=== PATIENT | female | born 1960 | race American Indian/Alaskan Native ===

== ENCOUNTER 2017-04-16 13:01 | Emergency (ER) | payer MEDICAID ==
--- NOTE | 2017-04-16 13:08 | EDM.PDOC ---
ED HPI GENERAL MEDICAL PROBLEM - General Chief Complaint: Neuro Symptoms/Deficits Stated Complaint: LEFT SIDE FACIAL DROOPING Time Seen by Provider: 04/16/17 13:01 Source of Information: Reports: Patient, RN Notes Reviewed History Limitations: Reports: No Limitations - History of Present Illness INITIAL COMMENTS - FREE TEXT/NARRATIVE: The patient states that she went to bed around 22:30 last night, and had no neurologic deficits. She states that when she woke this morning around 05:30, she saw in the mirror that she had a left facial droop, and reports having some tingling to the left side of her face and pain behind her left ear. She denies injury to the left side of her face. She reports recent allergy-like symptoms, including some sinus congestion. No prior similar symptoms. The patient's PCP is at [facility]. Posterior Neck Pain Score (Numeric/FACES): 10 - Related Data Allergies Allergy/AdvReac Type Severity Reaction Status Date / Time No Known Allergies Allergy Verified 04/16/17 13:07 Home Meds: Home Meds Hydrochlorothiazide 25 mg PO DAILY 04/16/17 [History] Prednisone [IJD: predniSONE] 60 mg PO WITHBREAKFAST #18 tab 04/16/17 [Rx] valACYclovir [Valtrex] 1,000 mg PO Q8H #18 tablet 04/16/17 [Rx] Past Medical History Cardiovascular History: Reports: CAD, High Cholesterol, Hypertension, [place] Gastrointestinal History: Reports: GERD Musculoskeletal History: Reports: Arthritis - Past Surgical History HEENT Surgical History: Reports: Other (See Below) (Left tympanic membrane graft ) Cardiovascular Surgical History: Reports: Coronary Artery Stent (x 1) GI Surgical History: Reports: Cholecystectomy Social & Family History - Tobacco Use Smoking Status *Q: Current Every Day Smoker Years of Tobacco use: 32 Packs/Tins Daily: 0.5 - Alcohol Use Alcohol Use History: No - Recreational Drug Use Recreational Drug Use: No - Living Situation & Occupation Living situation: Reports: Single, Alone Occupation: Unemployed ED ROS GENERAL - Review of Systems Review Of Systems: See Below Constitutional: Reports: No Symptoms HEENT: Reports: No Symptoms Respiratory: Reports: No Symptoms Cardiovascular: Reports: No Symptoms Endocrine: Reports: No Symptoms GI/Abdominal: Reports: Diarrhea, Nausea : Reports: No Symptoms Musculoskeletal: Reports: No Symptoms Skin: Reports: No Symptoms Neurological: Reports: No Symptoms Psychiatric: Reports: No Symptoms Hematologic/Lymphatic: Reports: No Symptoms Immunologic: Reports: No Symptoms ED EXAM, NEURO - Physical Exam Exam: See Below Exam Limited By: No Limitations General Appearance: Alert, WD/WN, No Apparent Distress Eye Exam: Left Eye: Other (The patient is able to close her left eye), Bilateral Eye: Normal Inspection Ears: Normal External Exam, Normal Canal, Normal TMs, Other (Decreased hearing left ear) Nose: Normal Inspection, Normal Mucosa, No Blood, Other (Whitish growthnoted on the inferior aspect of the right septum, possibly a polyp, possibly a tumor) Throat/Mouth: Normal Inspection, Normal Lips, Normal Teeth, Normal Gums, Normal Oropharynx, Normal Voice, No Airway Compromise Head Exam: Atraumatic, Normocephalic Neck: Normal Inspection, Supple, Non-Tender, Full Range of Motion. No: Lymphadenopathy (L), Lymphadenopathy (R) Respiratory/Chest: No Respiratory Distress, Lungs Clear, Normal Breath Sounds, No Accessory Muscle Use Cardiovascular: Normal Peripheral Pulses, Regular Rate, Rhythm, No Gallop, No JVD, No Murmur, No Rub GI/Abdominal: Normal Bowel Sounds, Soft, Non-Tender, No Organomegaly, No Distention, No Abnormal Bruit, No Mass (Female) Exam: Deferred Rectal (Female) Exam: Deferred Neurological: Alert, Normal Dorsiflexion, Normal Plantar Flexion, Normal Gait, No Motor/Sensory Deficits, Oriented x 3, Other (Left facial hemiparesis that involves the forehead, consistent with House-Brachmann grade III to IV) Back Exam: Normal Inspection, Full Range of Motion, NT Extremities: Normal Inspection, Normal Range of Motion, No Pedal Edema, Normal Capillary Refill Psychiatric: Normal Affect Skin Exam: Warm, Dry, Intact, Normal Color, No Rash Course - Vital Signs Last Recorded V/S: Last Vital Signs Temp 36.6 C 04/16/17 13:08 Pulse 72 04/16/17 13:08 Resp 18 04/16/17 13:08 BP 174/69 H 04/16/17 13:08 Pulse Ox 99 04/16/17 13:08 - Orders/Labs/Meds Meds: Medications Discontinued Medications Generic Name Dose Route Start Last Admin Trade Name Freq PRN Reason Stop Dose Admin Prednisone 80 mg 04/16/17 13:56 04/16/17 14:33 Prednisone PO 04/16/17 13:57 80 mg ONETIME STA Administration Valacyclovir HCl 1,000 mg 04/16/17 13:57 Valtrex PO 04/16/17 13:58 ONETIME STA Valacyclovir HCl 3,000 mg 04/16/17 14:21 04/16/17 14:33 Valtrex PO 04/16/17 14:22 3,000 mg ONETIME STA Administration - Re-Assessments/Exams Free Text/Narrative Re-Assessment/Exam: 04/16/17 13:58 Clinically, the patient has Sellers palsy, 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 Current guidelines recommend treatment with oral prednisone 60-80 mg daily for 7 days for all patients with Sellers palsy with onset under 3 days. Valtrex is also recommended for patients with House-Brachmann grade IV or above, therefore it is a judgment call if this patient would derive benefit from an antiviral. Since her onset is so early, her symptoms may worsen to a full grade for, therefore I am recommending that she start Valtrex. Treatment would be 1 g TID for 7 days. 04/16/17 14:22 Notified that we carry Valtrex 500 mg tablets. I have ordered 3 g - the patient is to take 1 g now, another gram in 8 hours, and the third gram tomorrow morning. She has been started on prednisone 80 mg here in the ED. Unfortunately , today being , all pharmacies are currently closed. I have e- prescribed 6 days each of prednisone and Valtrex. I am going to refer the patient to Dr. Hawk, ENT, for further evaluation of the growth in her right nostril. Departure - Departure Time of Disposition: 14:25 Disposition: Home, Self-Care 01 Condition: Good Clinical Impression: Left-sided Sellers's palsy - Discharge Information Prescriptions: Prednisone [IJD: predniSONE] 60 mg PO WITHBREAKFAST #18 tab valACYclovir [Valtrex] 1,000 mg PO Q8H #18 tablet Instructions: Sellers Palsy Referrals: PCP,Not In Area [Primary Care Provider] - James Hawk MD [Physician] - Forms: ED Department Discharge Additional Instructions: You were seen in the emergency room for left-sided facial weakness. On evaluation, you have a condition called Sellers palsy. In accordance with guidelines, you have been started on the steroid prednisone and the anti-viral medicine Valtrex. Take 60 mg prednisone with breakfast each morning, starting tomorrow morning, 04/17/2017, as prescribed. Take 1000 mg Valtrex every 8 hours, starting tomorrow, 04/17/2017, as prescribed. Finish both of these medicines unless told otherwise by a doctor. While it appears that you can close your left eye, it is possible that your condition may worsen, and that your left eye does not close when you are sleeping. If that happens, you will need to carefully tape your left eye closed at bedtime. A growth was noticed in your right nostril. This is unrelated to your Sellers palsy. We recommend you follow-up with the ENT Dr. Hawk for further evaluation. If any other problems, please do not hesitate to return to the ER.
[2017-04-16 13:13] VITALS: BP 174/69
[2017-04-16] MEDS ORDERED: predniSONE 20 MG Tab PO STA (13:56)
[2017-04-16] MEDS ORDERED: valACYclovir 1,000 MG Tab PO STA (13:57)
[2017-04-16] MEDS ORDERED: valACYclovir 500 MG Tab PO STA (14:21)
== END 2017-04-16 14:43 | disposition home or self-care (01) ==
LOC: JD.ED 13:01
DX: G51.0 Bell's palsy (principal); I25.10 Atherosclerotic heart disease of native coronary artery without angina pectoris; E78.00 Pure hypercholesterolemia, unspecified; I10 Essential (primary) hypertension; I25.2 Old myocardial infarction; F17.210 Nicotine dependence, cigarettes, uncomplicated; K21.9 Gastro-esophageal reflux disease without esophagitis; Z90.49 Acquired absence of other specified parts of digestive tract; Z79.899 Other long term (current) drug therapy
CPT/HCPCS: 99284; A9270; 99283

== ENCOUNTER 2017-12-17 08:54 | Emergency (ER) | payer MEDICAID ==
[2017-12-17 09:17] VITALS: BP 115/72
--- NOTE | 2017-12-17 09:30 | EDM.PDOC ---
ED HPI GENERAL MEDICAL PROBLEM - General Chief Complaint: General Stated Complaint: COUGH/CONGESTION Time Seen by Provider: 12/17/17 09:20 Source of Information: Reports: Patient History Limitations: Reports: No Limitations - History of Present Illness INITIAL COMMENTS - FREE TEXT/NARRATIVE: 57-year-old female presents to the ED with paroxysmal productive sounding cough for the last 2 weeks. Associated upper respiratory tract symptoms with pain in her maxillary sinuses nasal congestion postnasal drip. Throat is sore as well. Intermittent fever and some chills. Cough is mostly nonproductive but she does have associated wheezing. Of note she smoked a pack of cigarettes a day up until about 2 weeks ago when she decided to quit. Onset: Gradual Onset Date: 12/03/17 (Illness started about 2 weeks ago with cold-like symptoms nose sinuses and then congested cough.) Duration: Week(s):, Getting Worse Location: Reports: Face (Facial pain in the maxillary sinuses), Chest Quality: Reports: Ache, Other Severity: Moderate (Paroxysmal productive sounding cough with a wheeze) Improves with: Reports: None Worsens with: Reports: Other (Cough is worse when she lays down.) Associated Symptoms: Reports: Chest Pain, Cough, cough w sputum (From coughing so much), Diaphoresis ( coughing yellowish sputum without hemoptysis), Fever/ Chills, Loss of Appetite, Malaise, Shortness of Breath. 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 - Related Data Allergies Allergy/AdvReac Type Severity Reaction Status Date / Time No Known Allergies Allergy Verified 12/17/17 09:13 Home Meds: Home Meds Hydrochlorothiazide 25 mg PO DAILY 04/16/17 [History] Prednisone [IJD: predniSONE] 60 mg PO WITHBREAKFAST #18 tab 04/16/17 [Rx] valACYclovir [Valtrex] 1,000 mg PO Q8H #18 tablet 04/16/17 [Rx] Doxycycline [Vibramycin] 100 mg PO BID #24 cap 12/17/17 [Rx] Hydrocodone/Chlorphen P-Stirex [Tussionex Pennkinetic Susp] 5 ml PO Q12H PRN # 60 ml 12/17/17 [Rx] predniSONE [Deltasone] 20 mg PO BID #14 tablet 12/17/17 [Rx] Past Medical History HEENT History: Reports: Impaired Vision Cardiovascular History: Reports: CAD, High Cholesterol, Hypertension, [place] Respiratory History: Reports: COPD ([id number] history quit smoking 2 weeks ago) Gastrointestinal History: Reports: GERD [employer]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: Musculoskeletal History: Reports: Arthritis - Past Surgical History HEENT Surgical History: Reports: None Cardiovascular Surgical History: Reports: Coronary Artery Stent GI Surgical History: Reports: Cholecystectomy Musculoskeletal Surgical History: Reports: None Social & Family History - Family History Family Medical History: Noncontributory - Tobacco Use Smoking Status *Q: Former Smoker Years of Tobacco use: 32 Packs/Tins Daily: 0.5 Used Tobacco, but Quit: Yes Month/Year Tobacco Last Used: 12/2017 - Caffeine Use Caffeine Use: Reports: Coffee - Recreational Drug Use Recreational Drug Use: No - Living Situation & Occupation Living situation: Reports: Single, Alone Occupation: Unemployed ED ROS GENERAL - Review of Systems Review Of Systems: See Below Constitutional: Reports: Fever, Chills, Malaise, Weakness, Fatigue, Decreased Appetite, Weight Loss HEENT: Reports: Sinus Problem (Early having pain in both maxillary sinuses and pain in the ethmoid sphenoid sinus distribution), Other (Nasal congestion.). Denies: Ear Pain Respiratory: Reports: Shortness of Breath, Wheezing, Cough, Sputum. Denies: Hemoptysis (Yellowish in color) Cardiovascular: Reports: Chest Pain, Blood Pressure Problem (On medication for hypertension), Dyspnea on Exertion. Denies: Claudication, Edema, Lightheadedness, Orthopnea, Palpitations Endocrine: Reports: Fatigue GI/Abdominal: Reports: Decreased Appetite : Reports: No Symptoms Musculoskeletal: Reports: No Symptoms Skin: Reports: No Symptoms Neurological: Reports: Headache ED EXAM, GENERAL - Physical Exam Exam: See Below Exam Limited By: No Limitations General Appearance: Alert, WD/WN, Mild Distress, Other (Harsh paroxysmal productive sounding cough.) Eye Exam: Bilateral Eye: Normal Inspection Ears: Normal TMs Nose: Nasal Swelling (She has swelling of both medial and superior turbinates. No nasal polyps noted) Throat/Mouth: Normal Inspection, Normal Lips, Normal Oropharynx, Other Head: Atraumatic, Normocephalic Neck: Normal Inspection, Supple, Non-Tender, Full Range of Motion. No: Lymphadenopathy (L), Lymphadenopathy (R) Respiratory/Chest: No Accessory Muscle Use, Respiratory Distress (Mild tachypnea at rest with O2 sats of 91-94% on room air.), Rhonchi (Rhonchi throughout ), Wheezing (all lung narvaez. intermittent wheezing throughout all lung narvaez. ). No: Lungs Clear, Normal Breath Sounds, Chest Non-Tender Cardiovascular: Normal Peripheral Pulses, Regular Rate, Rhythm, No Edema, No Gallop, No Murmur Peripheral Pulses: 2+: Posterior Tibial (L), Posterior Tibial (R), Dorsalis Pedis (L), Dorsalis Pedis (R) GI/Abdominal: Normal Bowel Sounds, Soft, Non-Tender, No Organomegaly, Other. No : Guarding, Rigid, Rebound, Tender Back Exam: Normal Inspection, Full Range of Motion. No: CVA Tenderness (L), CVA Tenderness (R) Extremities: Normal Inspection, Normal Range of Motion, Non-Tender, No Pedal Edema Neurological: Alert, Oriented, CN II-XII Intact, Normal Cognition Psychiatric: Normal Affect, Normal Mood Skin Exam: Warm, Dry, Intact, Normal Color, No Rash Course - Vital Signs Last Recorded V/S: Last Vital Signs Temp 36.3 C 12/17/17 09:13 Pulse 92 12/17/17 09:13 Resp 20 12/17/17 09:13 BP 115/72 12/17/17 09:13 Pulse Ox 91 L 12/17/17 09:13 - Radiology Interpretation Free Text/Narrative:: 57-year-old female presents to the ED with paroxysmal productive cough for the last 2 weeks. Associated sinus congestion and increasing pain in her maxillary sinuses and sphenoid sinuses behind her eyes. Cough is productive yellow yellowish to greenish tinged phlegm at times without blood. Increased shortness of breath and obvious audible wheezing. Patient states she quit smoking 2 weeks ago. Oxygen. O2 sats are 91-94% on room air and she is not in any distress in this regard. Afebrile at present. However on exam lungs are congested throughout with rhonchi and wheezes. He does have maxillary sinus with postnasal drip. Plan two-view chest x-ray to be done - Re-Assessments/Exams Free Text/Narrative Re-Assessment/Exam: 12/17/17 10:05: Two-view chest x-ray is negative for pneumonia. Stigmatism of COPD is evident. Plan discharged on doxycycline 100 mg twice daily for the next 12 days for both sinus congestion and bronchitis. Prednisone 20 mg a.m. and p.m. for 7 days. Tussionex cough syrup 5 mils primarily at bedtime about an hour before planning to retire for the evening. With personal care physician if not markedly improved in 72 hours time. Departure - Departure Time of Disposition: 09:50 Disposition: Home, Self-Care 01 Condition: Fair Clinical Impression: Acute wheezy bronchitis Sinusitis Qualifiers: Sinusitis location: sphenoidal Chronicity: acute Recurrence: non-recurrent Qualified Code(s): J01.30 - Acute sphenoidal sinusitis, unspecified - Discharge Information Prescriptions: Doxycycline [Vibramycin] 100 mg PO BID #24 cap Hydrocodone/Chlorphen P-Stirex [Tussionex Pennkinetic Susp] 5 ml PO Q12H PRN # 60 ml PRN Reason: Cough relief predniSONE [Deltasone] 20 mg PO BID #14 tablet Instructions: Sinusitis, Adult, [id number], Acute Bronchitis, Adult, Easy-to- Read Referrals: PCP,None [Primary Care Provider] - Forms: ED Department Discharge Additional Instructions: Evaluation in the emergency room this morning in regards to severe paroxysmal cough for the last 2 weeks. Examination reveals productive sounding cough. Rhonchi throughout all lung narvaez with intermittent wheezing from all lung narvaez. Associated upper respiratory tract infection with mostly sinusitis with contributing postnasal drip contributing to cough. Chest x-ray two-view done reveals no evidence of pneumonia. Treatment is suggested to be antibiotic doxycycline 100 mg twice daily for the next 12 days to clear up sinus infection and bronchitis. Also suggest a short course of Deltasone 20 mg with breakfast and supper for the next 7 days to help with the wheezing and the chest congestion. Cough syrup Tussionex 5 mils every 12 hours as needed for cough relief. Plan on taking it about an hour before bedtime so that she don't cough all night long. If you don't need it in the morning try not to take it unless you're coughing very hard. Expect gradual improvement over the next 72 hours.
--- NOTE | 2017-12-17 10:05 | CR ---
Chest: Two views of the chest were obtained. Comparison: No prior chest x-ray. Heart size and mediastinum are normal. Lungs are clear. Diaphragms are slightly flattened on the lateral view suggesting emphysematous change. Slight degenerative change is scattered within the spine with minimal scoliosis. Surgical clips are noted from prior cholecystectomy. Impression: 1. Probable emphysematous change. Other incidental findings. Nothing acute is suspected. Diagnostic code #2
== END 2017-12-17 10:05 | disposition home or self-care (01) ==
LOC: JD.ED 08:54
DX: J01.30 Acute sphenoidal sinusitis, unspecified (principal); J20.9 Acute bronchitis, unspecified; I25.10 Atherosclerotic heart disease of native coronary artery without angina pectoris; E78.00 Pure hypercholesterolemia, unspecified; I10 Essential (primary) hypertension; I25.2 Old myocardial infarction; J44.9 Chronic obstructive pulmonary disease, unspecified; K21.9 Gastro-esophageal reflux disease without esophagitis; Z79.899 Other long term (current) drug therapy; Z90.49 Acquired absence of other specified parts of digestive tract; Z87.891 Personal history of nicotine dependence
CPT/HCPCS: 71046; 71046-26; 99283; 99284

== ENCOUNTER 2018-10-14 20:30 | Emergency (ER) | payer MEDICAID ==
[2018-10-14 20:40] VITALS: BP 129/100
[2018-10-14] MEDS ORDERED: Sodium Chloride 0.9% 10 ML Syringe FLUSH PRN (21:00)
[2018-10-14] MEDS ORDERED: Ondansetron 4 MG/2 ML SDV IVPUSH ONE (21:01)
[2018-10-14] MEDS ORDERED: Sodium Chloride 0.9% 1,000 ML IV SCH (21:15)
[2018-10-14] MEDS ORDERED: Potassium Chloride 10 MEQ in Premix Bag 1 BAG IV ONE (22:11)
[2018-10-14] MEDS ORDERED: Acetaminophen 325 MG Tab PO ONE (22:12)
[2018-10-14] MEDS ORDERED: Ketorolac 30 MG/ML SDV IVPUSH SCH (22:15)
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
--- NOTE | 2018-10-15 06:59 | CR ---
Chest: Portable view of the chest was obtained. Comparison: Prior chest x-ray of 12/17/17. Heart size and mediastinum are normal. Lungs are clear. Bony structures are within normal limits for the patient's age. Surgical clips are noted from prior cholecystectomy. Impression: 1. Nothing acute is seen on portable chest x-ray. No significant change from previous study is seen. Diagnostic code #1
== END 2018-10-15 08:55 | disposition home or self-care (01) ==
LOC: JD.ED 20:30
DX: J10.1 Influenza due to other identified influenza virus with other respiratory manifestations (principal); E87.6 Hypokalemia; I10 Essential (primary) hypertension; I25.10 Atherosclerotic heart disease of native coronary artery without angina pectoris; I25.2 Old myocardial infarction; F17.210 Nicotine dependence, cigarettes, uncomplicated; Z95.5 Presence of coronary angioplasty implant and graft; Z90.49 Acquired absence of other specified parts of digestive tract
CPT/HCPCS: 36415; 71045; 80053; 85025; 87804; 96361; 96365; 96366; 96375; 99284; A9270; J1885; J2405; J3480; J7040

== ENCOUNTER 2025-04-16 09:25 | Emergency (ER) | payer MEDICARE, MEDICAID ==
[2025-04-16 15:38] VITALS: BP 117/59; PULSE 86
== END 2025-04-16 11:47 | disposition home or self-care (01) ==
LOC: JD.ED 09:25
DX: J20.9 Acute bronchitis, unspecified (principal); I25.10 Atherosclerotic heart disease of native coronary artery without angina pectoris; E78.00 Pure hypercholesterolemia, unspecified; I25.2 Old myocardial infarction; J44.9 Chronic obstructive pulmonary disease, unspecified; K21.9 Gastro-esophageal reflux disease without esophagitis; Z90.49 Acquired absence of other specified parts of digestive tract; Z95.5 Presence of coronary angioplasty implant and graft; Z79.82 Long term (current) use of aspirin; Z79.899 Other long term (current) drug therapy
CPT/HCPCS: 71045; 71045-26; 94640; 99283; 99285; A9270-GY; J7512

== ENCOUNTER 2025-07-05 12:04 | Emergency (ER) | payer MEDICARE, MEDICAID ==
[2025-07-05 16:28] VITALS: BP 146/65; PULSE 66
== END 2025-07-05 14:10 | disposition home or self-care (01) ==
LOC: JD.ED 12:04
DX: S70.01XA Contusion of right hip, initial encounter (principal); S30.0XXA Contusion of lower back and pelvis, initial encounter; I25.10 Atherosclerotic heart disease of native coronary artery without angina pectoris; E78.00 Pure hypercholesterolemia, unspecified; I10 Essential (primary) hypertension; I25.2 Old myocardial infarction; J44.9 Chronic obstructive pulmonary disease, unspecified; K21.9 Gastro-esophageal reflux disease without esophagitis; Z90.49 Acquired absence of other specified parts of digestive tract; Z79.899 Other long term (current) drug therapy; Z79.82 Long term (current) use of aspirin; W19.XXXA Unspecified fall, initial encounter; Y93.89 Activity, other specified
CPT/HCPCS: 73502; 96372; 99284; J1171